=== PATIENT | female | born 1960 | race Hispanic/Latino ===

== ENCOUNTER 2018-01-15 17:58 | Observation (INO) | payer BC ==
[2018-01-15 18:45] LABS: #Basophils 0.1 thou/uL (0.0-0.2); #Eosinphils 0.1 thou/uL (0.0-0.7); #Lymphocytes 4.6 thou/uL (1.20-3.40); #Monocytes 1.3 thou/uL (0.11-0.59); #Neutrophils 6.7 thou/uL (1.40-6.50); %Basophils 0.6 % (0.0-1.0); %Eosinophils 0.9 % (0.0-10.0); %Lymphocytes 36.1 % (21.0-51.0); %Monocytes 9.9 % (0.0-10.0); %Neutrophils 52.5 % (42.0-75.0); Hemoglobin 13.9 g/dL (12.0-16.0); Mean Corpuscular HGB CONC 33.8 g/dL (32.0-36.0); Mean Corpuscular Hemoglobin 32.9 pg (27.0-31.0); Mean Corpuscular Volume 97.4 fl (81.0-99.0); Mean Platelet Volume 6.6 fL (7.4-10.4); Platelet Count 409 thou/uL (130-400); RBC Distribution Width 12.3 % (11.5-14.5); Red Blood Cell (RBC) Count 4.23 mill/uL (4.20-5.40); White Blood Cell (WBC) Count 12.7 thou/uL (4.8-10.8)
--- NOTE | 2018-01-15 18:53 | RAD ---
TWO VIEWS OF THE CHEST: 01/15/18 COMPARISON: 10/22/16 HISTORY: Chest tightness and hyperventilation. FINDINGS: Two views of the chest show normal sized cardiomediastinal silhouette. There is no evidence of consol idation, mass, or pleural effusion. Hardware seen in the right humerus. IMPRESSION: No evidence of acute cardiopulmonary disease. POS: [facility]
[2018-01-15 19:03] LABS: Anion Gap 18 mmol/L (10-20); BUN (Urea Nitrogen) 13 mg/dL (9.8-20.1); Calc. Creatinine Clearance 0 mL/min (70-130); Calcium 10.3 mg/dL (7.8-10.44); Carbon Dioxide 19 mmol/L (22-29); Chloride 109 mmol/L (98-107); Estimated GFR-MDRD 75; Glucose 102 mg/dL (70-105); Potassium 3.6 mmol/L (3.5-5.1); Sodium 142 mmol/L (136-145)
[2018-01-15 19:09] LABS: Troponin I Less than 0.010 ng/mL (< 0.028)
[2018-01-15] MEDS ORDERED: Lorazepam 2 MG/ML VIAL ONE (19:34)
[2018-01-15 20:10] LABS: Bilirubin Negative (Negative); Blood, Urine Negative (Negative); Clarity CLOUDY (Clear); Glucose, Urine (Dipstick) Negative (Negative); Leukocyte Trace (Negative); Nitrite Negative (Negative); Protein, Urine (Dipstick) Negative (Neg-Trace); Specific Gravity, Urine 1.009 (1.002-1.036)
[2018-01-15 20:13] LABS: Bacteria/HPF 1+ HPF (None Seen); Hyaline Casts/LPF 0-3 HYALINE CAST LPF (0-3 Hyaline); Pathc Cast-AUWi Flag 0.14 (0-2.49); RBC/HPF 0-3 HPF (0-3)
[2018-01-15] MEDS ORDERED: diphenhydrAMINE 50 MG/ML VIAL ONE (20:43)
[2018-01-15] MEDS ORDERED: Ketorolac Tromethamine 30 MG/ML VIAL ONE (20:43)
[2018-01-15] MEDS ORDERED: Ondansetron ODT 4 MG TAB ONE (20:43)
[2018-01-15] MEDS ORDERED: Dextrose 50% Abboject 50 ML SYRINGE SLOW IVP PRN (22:04)
[2018-01-15] MEDS ORDERED: Eucerin (Mineral Oil/Petrolatum,White) 30 gm Jar TOP PRN (22:04)
[2018-01-15] MEDS ORDERED: Loperamide HCl 2 MG CAP PO PRN (22:04)
[2018-01-15] MEDS ORDERED: Sodium Chloride 0.65% Nasal 44 ML BOT EA NARE PRN (22:04)
[2018-01-15] MEDS ORDERED: Nitroglycerin 0.4 MG TAB (25 Tab Bottle) SL PRN (22:04)
[2018-01-15] MEDS ORDERED: Dextrose 5% in Water 1,000 ML IV PRN (22:04)
[2018-01-15] MEDS ORDERED: Loratadine 10 MG TAB PO PRN (22:04)
[2018-01-15] MEDS ORDERED: Diabetic Tussin 200 MG/10 ML UDCUP PO PRN (22:04)
[2018-01-15] MEDS ORDERED: Mag-Al 1200 mg/1200 mg/30 ML UDCUP PO PRN (22:04)
[2018-01-15] MEDS ORDERED: Chloraseptic Spray 180 ml Bottle PO PRN (22:04)
[2018-01-15] MEDS ORDERED: Artificial Tears 18 DROP/0.9 ML EA EYE PRN (22:04)
[2018-01-15] MEDS ORDERED: Ondansetron HCl/PF 4 MG/2 ML Vial IVP PRN (22:04)
[2018-01-15] MEDS ORDERED: Senokot 8.6 MG TAB PO PRN (22:04)
[2018-01-15] MEDS ORDERED: Milk Of Magnesia 30 ML UDCUP PO PRN (22:04)
[2018-01-15] MEDS ORDERED: Zolpidem Tartrate 5 MG TAB PO PRN (22:04)
[2018-01-15] MEDS ORDERED: HumaLOG 300 UNITS/3 ML VIAL SC PRN ×2 (22:04)
[2018-01-15] MEDS ORDERED: HYDROcodone/Acetaminophen 5/325 mg Tablet PO PRN (22:04)
[2018-01-15] MEDS ORDERED: hydrALAZINE 20 MG/ML VIAL SLOW IVP PRN (22:04)
[2018-01-15] MEDS ORDERED: Guaifenesin DM 100-10/5 ML UDCUP PO PRN (22:04)
[2018-01-15 22:07] LABS: Troponin I Less than 0.010 ng/mL (< 0.028)
[2018-01-15] MEDS: Acetaminophen 325 MG TAB PO PRN (22:40)
[2018-01-15 22:51] VITALS: BMI 31.2
--- NOTE | 2018-01-15 23:04 | HP ---
PRIMARY CARE PHYSICIAN: Dr. Louisa Boyle. REASON FOR ADMISSION: Chest pain. HISTORY OF PRESENT ILLNESS: A 57-year-old female who has underlying history of diabetes type 2, hypo thyroidism, dyslipidemia, gastroesophageal reflux disease, anxiety, and depression, who came to emerg ency room with complaint of intermittent chest pain. Patient feels that she was feeling anxiety and panic attack. She is in lot of stress lately. She is taking care of her mother who is very sick. S he was also having a lot of other stress in her family and that is why she was attributing all sympto ms to her anxiety attack. Patient was feeling shakiness. At the same time, she was experiencing sub sternal chest tightness, nausea, and headache. She was feeling palpitation and shortness of breath. She was feeling tingling, numbness sensation in arm, and around her lip. Patient was also feeling d izziness and lightheadedness. Patient was having these symptoms since Wednesday, but Wednesday, her symptoms was gotten worse. She res elsa very well Wednesday afternoon, but when she woke up at that time she was feeling nausea and chest tightness and that is why they were worried about heart problem and decided to come to emergency room for evaluation. Patient never had any heart-related testing in emergency room, she was hemodynamica lly stable, so initially tachycardic, tachypneic, and anxious, but after emergency room treatment, clarissa win was more stabilized. Patient's urinalysis was suggestive of UTI, but she did not have any UTI symptoms. She did not have any fever or chills. Today in the emergency room examination showed sign ificant murmur and that is why we decided to keep this patient in hospital for further evaluation and treatment. She denies any UTI symptoms. She denies any constipation, diarrhea, melena, hematochezia. She denie s any abdominal pain. She denies any fever or chills. She denies any headache, focal motor weakness or sensory symptoms. REVIEW OF SYSTEMS: Please see my HPI for pertinent positive and negative. All other review of syste ms reviewed and negative except as mentioned in the HPI: Constitutional: Weight loss or gain, abili ty to conduct usual activities. Skin: Rash, itching. Eyes: Double vision, pain. ENT/Mouth: Nose bleeding, neck stiffness, pain, tenderness. Cardiovascular: Palpitations, dyspnea on exertion, ort hopnea. Respiratory: Shortness of breath, wheezing, cough, hemoptysis, fever, or night sweats. Gas trointestinal: Poor appetite, abdominal pain, heartburn, nausea, vomiting, constipation, or diarrhea . Genitourinary: Urgency, frequency, dysuria, nocturia. Musculoskeletal: Pain, swelling. Neurolo gic/Psychiatric: Anxiety, depression. Allergy/Immunologic: Skin rash, bleeding tendency. ALLERGIES: TETRACYCLINE. CURRENT HOME MEDICATIONS: Bupropion XL 150 mg p.o. daily, metformin extended release 1000 mg p.o. da jeff, levothyroxine 125 mcg p.o. daily, Lipitor 40 mg p.o. at bedtime, Celexa 10 mg p.o. daily, omepra zole 40 mg p.o. daily, Benadryl 25 mg as needed. PAST MEDICAL HISTORY: Diabetes type 2, hypothyroidism, dyslipidemia, gastroesophageal reflux disease , history of Hodgkin's lymphoma treated with radiation in 1989. Patient is under remission for last 15 years. PAST PSYCHIATRIC HISTORY: Anxiety and depression. PAST SURGICAL HISTORY: Right shoulder surgery. SOCIAL HISTORY: Patient is . She drinks alcohol socially. She smokes occasionally. She den ies any other illicit drug abuse. She lives at home with family. FAMILY HISTORY: No strong family history of premature coronary artery disease, stroke, or cancer. EMERGENCY ROOM COURSE: Patient is given Rocephin 1 gram, Benadryl 25 mg, Toradol 15 mg, Reglan 10 mg , Ativan 1 mg, and aspirin 325 mg. PHYSICAL EXAMINATION: VITAL SIGNS: On arrival, blood pressure 136/104, pulse 113, respiratory rate 30, temperature 98.0, s aturation 98% on room air, weight 82.5 kilograms. GENERAL: Patient is currently alert, awake, anxious. HEAD: Normocephalic, atraumatic. EYES: Pupils round, reactive to light. Extraocular muscle intact. ENT: Oropharynx within normal limits. Moist mucous membranes. No oral lesion, no pharyngeal erythe ma, no exudate. NECK: Supple, no JVD, no thyromegaly, no carotid bruit, no jugular venous distention. LUNGS: Clear to auscultation without any rhonchi or rales. CARDIAC: S1, S2 regular. Systolic murmur present at the aortic area radiating to apex grade 3/6. N o gallop, no rub. ABDOMEN: Soft, bowel sounds present, nontender, nondistended. No organomegaly, no mass, no suprapub ic tenderness. BACK: Unremarkable, no CVA tenderness. EXTREMITIES: Upper extremities, passive movement of all joints are normal. Lower extremities: No e kimberly. Good peripheral pulsation. SKIN: No skin rash. HEMATOLOGICAL SYSTEM: No lymphadenopathy. PSYCHIATRIC: Normal affect. NEUROLOGIC: Nonfocal examination. SIGNIFICANT LABORATORY DATA: EKG showing sinus tachycardia, nonspecific ST-T changes. Chest x-ray b ased on my review, no acute cardiopulmonary process. CBC: WBC 12.7, hemoglobin 13.9, platelet 409. BMP: Sodium 142, potassium 3.6, chloride 109, carbon dioxide 19, BUN 13, creatinine 0.79, glucose 102, calcium 10.3, troponin I less than 0.010. D-dimer less than 0.27. Urinalysis suggestive of urinary tract infections. ASSESSMENT AND PLAN: 1. Chest pain. Patient's chest pain description is atypical most likely related with anxiety neuros is given her significant murmur in aortic area, we are suspecting aortic valve disease as well. Curr ently, EKG is not showing any ischemic changes and her troponins are negative. Her D-dimer is also n egative and her history does not support any thromboembolic disorder, most likely current presentatio n is consistent with anxiety neurosis, but she has several risk factors for coronary artery disease a nd that is why she will need to rule out acute coronary syndrome. We will do serial cardiac enzymes x3 and if negative, then tomorrow morning, we will perform exercise Cardiolite stress test for diagno stic reasons. We will check lipid profile for risk stratification, meanwhile, continue with aspirin 325 mg p.o. daily and nitro patch q.8 hourly. 2. Murmur. Patient does have aortic valve murmur. I am suspecting aortic stenosis with mitral regu rgitation. Patient also has murmur radiating to mitral valve area. This patient will need echocardi ography for further evaluation. Based on echo finding, we will decide next step. 3. Diabetes type 2, continue insulin as per sliding scale protocol. Diabetic diet will be given. C ontinue metformin 500 mg p.o. twice daily. 4. Hypothyroidism, continue Synthroid 125 mcg p.o. daily. 5. Gastroesophageal reflux disease, continue Pepcid 20 mg p.o. b.i.d. 6. Dyslipidemia, check lipid profile tomorrow and continue Lipitor 40 mg p.o. at bedtime. 7. Anxiety and depression, continue Wellbutrin-SR 150 mg p.o. daily and Celexa 10 mg p.o. daily. 8. Asymptomatic urinary tract infection. Patient is already given Rocephin, we will give her Cipro 500 mg p.o. twice daily. 9. Deep venous thrombosis prophylaxis not needed, because we are expecting discharge in 24 hours. 10. Code status: Patient is FULL CODE. Patient's is surrogate decision maker. Disposition plan based on clinical course. Plan of care discussed with the patient's in [facility].
[2018-01-15] MEDS: Nitroglycerin 2% Ointment 1 INCH/1 GM Packet TOP SCH (23:25)
[2018-01-16 01:12] LABS: Troponin I Less than 0.010 ng/mL (< 0.028)
[2018-01-16] MEDS: Ondansetron ODT 4 MG TAB PO PRN ×2 (04:12→13:02)
[2018-01-16] MEDS: Acetaminophen 325 MG TAB PO PRN (04:12)
[2018-01-16 05:13] LABS: Cardiac Risk 3.8 (Less than 4.5)
[2018-01-16] MEDS ORDERED: Levothyroxine Sodium 125 MCG TAB PO SCH (06:00)
[2018-01-16] MEDS ORDERED: metFORMIN 500 MG TAB PO SCH (08:00)
[2018-01-16] MEDS ORDERED: Aspirin 325 MG TAB PO SCH (09:00)
[2018-01-16] MEDS ORDERED: Citalopram 10 MG TAB PO SCH (09:00)
[2018-01-16] MEDS ORDERED: Bupropion 150 MG XL TAB PO SCH (09:00)
[2018-01-16] MEDS ORDERED: Famotidine 20 MG TAB PO SCH (09:00)
[2018-01-16] MEDS ORDERED: ALPRAZolam 0.25 MG TAB PO PRN (10:23)
--- NOTE | 2018-01-16 10:30 | PDOC.EVN ---
Event Note - Event Note Event Note: dc summary dictated #[id number]
--- NOTE | 2018-01-16 10:44 | DIS ---
DATE OF ADMISSION: 01/15/2018 DATE OF DISCHARGE: 01/16/2018 ADMITTING DIAGNOSES: Chest pain as well as history of anxiety, history of hypertension, history of hyperthyroidism and DM II. DISCHARGE DIAGNOSES: 1. Chest pain, likely related to anxiety and valvulopathy. 2. History of hypertension, stable. 3. History of hypothyroidism, stable. 4. History of diabetes mellitus type 2, stable. HOSPITAL COURSE: This is a 57-year-old female who was admitted to the hospital for severe anxiety and chest pain. Patient had a history of valvulopathy as well as risk factors for cardiac disease given her hypertension and diabetes mellitus type 2. The patient was admitted to Internal Medicine team and was followed on telemetry floor observation status with cardiac enzymes being done and coronary artery disease ruled out. Patient had an echo done as well as a nuclear stress test. The patient was found to have atypical noncardiac chest pain in nature, likely secondary to severe anxiety. The patient recently apparently had stopped her Xanax cold and started taking citalopram 5 days ago. The patient was advised to resume her Xanax for at least 5-7 more days and then discontinuing it as drug levels would probably not be therapeutic for her citalopram. Patient's condition at point in time of discharge was stable. DISPOSITION: Home. FOLLOWUP: Follow up with primary care physician in 1-2 weeks. MEDICATIONS: Resume home medications with Xanax to be resumed low dose for about 5-7 days and then discontinuation of Xanax once citalopram has been taken for more than 2 weeks. DIET: Low fat, low calorie, high fiber. CONDITION: Stable. PROGNOSIS: Good. ACTIVITY: As tolerated. Case and plan discussed with the patient and at length. They understand and agree with this plan. JAVIER
[2018-01-16] MEDS ORDERED: ADENOSINE 60 MG/20 ML VIAL ONE (12:06)
[2018-01-16] MEDS: Nitroglycerin 2% Ointment 1 INCH/1 GM Packet TOP SCH (14:11)
[2018-01-16 15:55] VITALS: BP 147/82; TEMP 98.1
--- NOTE | 2018-01-16 16:29 | NM ---
MYOCARDIAL PERFUSION AND QUANTATIVE GATED SPECT STUDY: History: Chest pain. History of diabetes. Dose: 28 mCi Technetium 99M Cardiolite for the stress portion of the exam and 10 mCi Technetium 99M C ardiolite for the resting portion of the exam. The patient was stress using 45.9 mg Adenosine given I V. FINDINGS: Myocardial perfusion and quantitative ferris SPECT images obtained. No evidence of myocardial ischemia or scar seen. No evidence of wall motion abnormality seen. Ejection fraction measures 80%. IMPRESSION: Normal myocardial perfusion and quantitative gated SPECT study. POS: [facility]
[2018-01-16] MEDS ORDERED: Atorvastatin Calcium 40 MG TAB PO SCH (21:00)
== END 2018-01-16 16:04 | disposition home or self-care (01) ==
LOC: ERS 17:58 → 2SW 20:35
PROVIDERS: ADMIT Internal Medicine Infectious Disease; ATTEND Internal Medicine Infectious Disease
DX: R07.89 Other chest pain (principal); I10 Essential (primary) hypertension; E03.9 Hypothyroidism, unspecified; E11.9 Type 2 diabetes mellitus without complications; F42.9 Obsessive-compulsive disorder, unspecified; E78.5 Hyperlipidemia, unspecified; K21.9 Gastro-esophageal reflux disease without esophagitis; F17.200 Nicotine dependence, unspecified, uncomplicated; I35.8 Other nonrheumatic aortic valve disorders; N39.0 Urinary tract infection, site not specified; F32.9 Major depressive disorder, single episode, unspecified; Z79.84 Long term (current) use of oral hypoglycemic drugs; Z79.899 Other long term (current) drug therapy; Z88.1 Allergy status to other antibiotic agents; Z98.890 Other specified postprocedural states; Z85.71 Personal history of Hodgkin lymphoma; Z92.3 Personal history of irradiation
CPT/HCPCS: 36415; 36416; 71046; 78452; 80048; 80061; 81003; 81015; 84484; 85025; 85379; 93005; 93017; 93306; 96374; 96375; 99406; A9500; G0378; J0153; J0696; J1200; J1885; J2060; Q0162

== ENCOUNTER 2019-06-20 14:54 | Outpatient (CLI) | payer BC ==
[2019-06-20 15:59] LABS: #Basophils 0.1 thou/uL (0.0-0.2); #Eosinphils 0.1 thou/uL (0.0-0.7); #Lymphocytes 3.1 thou/uL (1.20-3.40); #Monocytes 0.9 thou/uL (0.11-0.59); #Neutrophils 5.7 thou/uL (1.40-6.50); %Basophils 0.9 % (0.0-1.0); %Eosinophils 0.9 % (0.0-10.0); %Lymphocytes 31.6 % (21.0-51.0); %Monocytes 9.5 % (0.0-10.0); %Neutrophils 57.1 % (42.0-75.0); Hemoglobin 13.4 g/dL (12.0-16.0); Mean Corpuscular HGB CONC 32.8 g/dL (32.0-36.0); Mean Corpuscular Hemoglobin 32.8 pg (27.0-31.0); Mean Platelet Volume 7.6 fL (7.4-10.4); Platelet Count 342 thou/uL (130-400); Red Blood Cell (RBC) Count 4.09 mill/uL (4.20-5.40); White Blood Cell (WBC) Count 9.9 thou/uL (4.8-10.8)
[2019-06-20 16:18] LABS: Anion Gap 12 mmol/L (10-20); BUN (Urea Nitrogen) 16 mg/dL (9.8-20.1); Calc. Creatinine Clearance 0 mL/min (70-130); Calcium 9.5 mg/dL (7.8-10.44); Carbon Dioxide 27 mmol/L (22-29); Chloride 105 mmol/L (98-107); Estimated GFR-MDRD 76; Glucose 135 mg/dL (70-105); Potassium 3.9 mmol/L (3.5-5.1); Sodium 140 mmol/L (136-145)
--- NOTE | 2019-06-21 16:54 | EKG ---
Test Reason : Blood Pressure : / mmHG Vent. Rate : 099 BPM Atrial Rate : 099 BPM P-R Int : 130 ms QRS Dur : 080 ms QT Int : 372 ms P-R-T Axes : 044 011 084 degrees QTc Int : 477 ms Normal sinus rhythm Anterior infarct (cited on or before 15-JAN-2018) Abnormal ECG When compared with ECG of 15-JAN-2018 18:06, Questionable change in initial forces of Septal leads Nonspecific T wave abnormality has replaced inverted T waves in Lateral leads Confirmed by DR. Terese ESPOSITO ([id number]) on 06/21/2019 4:54:15 PM Referred By: SUNITHA Confirmed By:DR. Terese ESPOSITO
== END 2019-06-20 14:55 | disposition home or self-care (01) ==
LOC: LABBT 14:54
PROVIDERS: ATTEND Surgery
DX: Z01.818 Encounter for other preprocedural examination (principal); K43.2 Incisional hernia without obstruction or gangrene
CPT/HCPCS: 80048; 85025; 93005; 93010

== ENCOUNTER 2019-06-23 10:05 | Day surgery (SDC) | payer BC ==
[2019-06-20 15:25] VITALS: BMI 29.4
[2019-06-23] MEDS ORDERED: Bupivacaine/Epinephrine 0.25% 30 ML VIAL ONE (11:00)
[2019-06-23] MEDS ORDERED: Midazolam HCl 2 mg/2 ml Vial ONE (11:17)
[2019-06-23] MEDS ORDERED: Fentanyl 100 MCG/2 ML VIAL ONE ×3 (11:17→13:56)
[2019-06-23] MEDS ORDERED: HYDROcodone/Acetaminophen 10/325 mg Tablet ONE (13:42)
[2019-06-23] MEDS ORDERED: Ketorolac Tromethamine 30 MG/ML VIAL ONE (13:44)
[2019-06-23] MEDS ORDERED: PROPOFOL 200 MG/20 ML VIAL ONE (13:44)
[2019-06-23] MEDS ORDERED: Dexamethasone 20 MG/5 ML VIAL ONE (13:44)
[2019-06-23] MEDS ORDERED: Ondansetron PF 4 MG/2 ML Vial ONE (13:44)
[2019-06-23] MEDS ORDERED: Glycopyrrolate 0.2 MG/ML 5 ML SYRINGE ONE (13:44)
[2019-06-23] MEDS ORDERED: PHENYLEPHRINE-NS 100 MCG/ML 10 ML SYRINGE ONE (13:44)
[2019-06-23] MEDS ORDERED: Lidocaine 1% PF 5 ML VIAL ONE (13:44)
[2019-06-23] MEDS ORDERED: Rocuronium Bromide 10 MG/ML (10ML VIAL) ONE (13:44)
--- NOTE | 2019-06-23 14:30 | OP ---
DATE OF PROCEDURE: 06/23/2019 PREOPERATIVE DIAGNOSIS: Incisional hernia. POSTOPERATIVE DIAGNOSIS: Incisional hernia. PROCEDURE PERFORMED: Laparoscopic Da Delma incisional hernia repair with mesh, [address] ANESTHESIA: General. ESTIMATED BLOOD LOSS: None. COMPLICATIONS: None. SPECIMEN: None. FINDINGS: Old mesh was removed. DESCRIPTION OF PROCEDURE: The patient was taken to the operating room and laid supine on the operating room table. After general anesthetic was obtained, a Potter was placed. The abdomen was shaved, prepped, and draped in a sterile fashion. Left subcostal 5 mm Optiview trocar was placed in the usual fashion without injury and high-flow pneumoperitoneum was obtained. Left and right abdominal 8 mm robotic trocars were placed. The subcostal 5 mm port was switched out to an 11 mm balloon trocar. All ports were docked to the robot. Surgeon gone to the console. The peritoneal fat and peritoneum were taken down in the area of the umbilicus, where the recurrent hernia was. The old mesh was taken down with the peritoneum, it was removed from the abdomen through the camera port. The fascial defect was found. The preperitoneal fat was dissected out of the 2 cm defect. There were two defects, one small, one large. They were closed using a running 0 V-Loc suture. The 8 cm mesh was placed posterior to the repair with the exposed mesh against the posterior fascia. The mesh was sewn via 2-0 V-Loc around the edges just to hold it to the posterior fascia. All needles were removed from the abdomen and accounted for. All port sites were infiltrated under local anesthetic. All ports were removed under camera visualization. Pneumoperitoneum was let down. 4-0 Monocryl and Dermabond were used to close all skin incisions. The patient was sent to Recovery in stable condition. All instrument counts, needle counts, and lap counts were correct. Job ID: [id number]
[2019-06-23] MEDS ORDERED: Promethazine HCl 25 MG/ML VIAL ONE (14:54)
[2019-06-23] MEDS ORDERED: Ondansetron ODT 4 MG TAB ONE (16:54)
== END 2019-06-23 17:05 | disposition home or self-care (01) ==
LOC: SDC 10:05
PROVIDERS: ATTEND Surgery
PROC: 0WUF4JZ Supplement Abdominal Wall with Synthetic Substitute, Percutaneous Endoscopic Approach (ICD-10-PCS; principal; 2019-06-23)
DX: K43.2 Incisional hernia without obstruction or gangrene (principal); E03.9 Hypothyroidism, unspecified; F17.200 Nicotine dependence, unspecified, uncomplicated; Z85.71 Personal history of Hodgkin lymphoma; Z86.010 Personal history of colon polyps; Z79.899 Other long term (current) drug therapy; Z88.1 Allergy status to other antibiotic agents; Z88.8 Allergy status to other drugs, medicaments and biological substances
CPT/HCPCS: C1781; J0690; J2250; J2550; J3010; Q0162

== ENCOUNTER 2020-03-13 16:00 | Outpatient (CLI) | payer BC ==
--- NOTE | 2020-03-13 16:23 | MMO ---
Bilateral MAMMO Bilat Screen [facility]. CLINICAL HISTORY: Patient is 59 years old and is seen for screening. The patient has no family history of breast cancer. The patient has a history of lymphoma at age 35. VIEWS: The views performed were: bilateral craniocaudal with tomosynthesis and bilateral mediolateral oblique with tomosynthesis. FILMS COMPARED: The present examination has been compared to prior imaging studies performed at [facility] on 01/06/2011 and 06/24/2017, and at [facility] on 06/25/2004. This study has been interpreted with the assistance of computer-aided detection. MAMMOGRAM FINDINGS: There are scattered fibroglandular densities. There are no suspicious masses, suspicious calcifications, or new areas of architectural distortion. IMPRESSION: THERE IS NO MAMMOGRAPHIC EVIDENCE OF MALIGNANCY. A ROUTINE FOLLOW-UP MAMMOGRAM IN 1 YEAR IS RECOMMENDED. THE RESULTS OF THIS EXAM WERE SENT TO THE PATIENT. ACR BI-RADS Category 1 - Negative MAMMOGRAPHY NOTE: 1. A negative mammogram report should not delay a biopsy if a dominant of clinically suspicious mass is present. 2. Approximately 10% to 15% of breast cancers are not detected by mammography. 3. Adenosis and dense breasts may obscure an underlying neoplasm. Reported by: KE HODGE MD Electonically Signed: [id number]
== END 2020-03-13 16:01 | disposition home or self-care (01) ==
LOC: BICMAMMO 16:00
PROVIDERS: ATTEND Family Medicine
DX: Z12.31 Encounter for screening mammogram for malignant neoplasm of breast (principal); Z85.72 Personal history of non-Hodgkin lymphomas
CPT/HCPCS: 77063; 77067

== ENCOUNTER 2022-05-14 13:12 | Outpatient (CLI) | payer BC | END 2022-05-14 13:13 | disposition home or self-care (01) | LOC: BICMAMMO 13:12 | PROVIDERS: ATTEND Family Medicine | DX: Z12.31 Encounter for screening mammogram for malignant neoplasm of breast (principal) | CPT/HCPCS: 77063; 77067 ==

== ENCOUNTER 2022-12-30 10:08 | Outpatient (CLI) | payer BC | END 2022-12-30 10:09 | disposition home or self-care (01) | LOC: BICRAD 10:08 | PROVIDERS: ATTEND Family Medicine | DX: R05.1 Acute cough (principal) | CPT/HCPCS: 71046 ==

== ENCOUNTER 2023-03-16 15:16 | Outpatient (CLI) | payer BC | END 2023-03-16 15:17 | disposition home or self-care (01) | LOC: BICRAD 15:16 | PROVIDERS: ATTEND Family Medicine | DX: R05.3 Chronic cough (principal) | CPT/HCPCS: 71046 ==

== ENCOUNTER 2023-05-12 10:26 | Day surgery (SDC) | payer BC ==
[2023-05-11 11:43] VITALS: BMI 29.7
[2023-05-12] MEDS ORDERED: Oxymetazoline HCl 0.05% (30 ML BOT) ONE (11:27)
[2023-05-12 11:32] LABS: Hematocrit 41.1 % (36.0-47.0)
[2023-05-12] MEDS ORDERED: Lidocaine 1% (PF) 30 ML VIAL ONE (12:58)
[2023-05-12] MEDS ORDERED: fentaNYL 50 mcg/mL 1 mL Vial ONE ×7 (12:59→15:15)
[2023-05-12] MEDS ORDERED: Famotidine/PF 20 mg/2ml Vial ONE (13:00)
[2023-05-12] MEDS ORDERED: Phenylephrine 10 MG/ML VIAL ONE (13:00)
[2023-05-12] MEDS ORDERED: Ondansetron PF 4 MG/2 ML Vial ONE (13:14)
[2023-05-12] MEDS ORDERED: NEOSTIGMINE 3 MG/3 ML SYR 3 MG/3 ML SYRINGE ONE (13:14)
[2023-05-12] MEDS ORDERED: Dexamethasone 20 MG/5 ML VIAL ONE (13:14)
[2023-05-12] MEDS ORDERED: Lidocaine 1% PF 5 ML VIAL ONE (13:14)
[2023-05-12] MEDS ORDERED: Rocuronium Bromide 10 MG/ML (10ML VIAL) ONE (13:14)
[2023-05-12] MEDS ORDERED: Succinylcholine 200 MG/10 ml SYRINGE FS ONE (13:14)
[2023-05-12] MEDS ORDERED: Glycopyrrolate 0.2 MG/ML 5 ML SYRINGE ONE (13:14)
[2023-05-12] MEDS ORDERED: HYDROcodone/Acetaminophen 5/325 mg Tablet ONE (16:01)
== END 2023-05-12 16:41 | disposition home or self-care (01) ==
LOC: SDC 10:26
PROVIDERS: ATTEND Otolaryngology Plastic Surgery within the Head & Neck
PROC: 099S8ZZ Drainage of Right Frontal Sinus, Via Natural or Artificial Opening Endoscopic (ICD-10-PCS; principal; 2023-05-12)
PROC: 099T8ZZ Drainage of Left Frontal Sinus, Via Natural or Artificial Opening Endoscopic (ICD-10-PCS; principal; 2023-05-12)
PROC: 099X8ZZ Drainage of Left Sphenoid Sinus, Via Natural or Artificial Opening Endoscopic (ICD-10-PCS; principal; 2023-05-12)
PROC: 099R8ZZ Drainage of Left Maxillary Sinus, Via Natural or Artificial Opening Endoscopic (ICD-10-PCS; principal; 2023-05-12)
PROC: 099V8ZZ Drainage of Left Ethmoid Sinus, Via Natural or Artificial Opening Endoscopic (ICD-10-PCS; principal; 2023-05-12)
PROC: 099Q8ZZ Drainage of Right Maxillary Sinus, Via Natural or Artificial Opening Endoscopic (ICD-10-PCS; principal; 2023-05-12)
PROC: 09TL8ZZ Resection of Nasal Turbinate, Via Natural or Artificial Opening Endoscopic (ICD-10-PCS; principal; 2023-05-12)
PROC: 099U8ZZ Drainage of Right Ethmoid Sinus, Via Natural or Artificial Opening Endoscopic (ICD-10-PCS; principal; 2023-05-12)
PROC: 099W8ZZ Drainage of Right Sphenoid Sinus, Via Natural or Artificial Opening Endoscopic (ICD-10-PCS; principal; 2023-05-12)
DX: J34.3 Hypertrophy of nasal turbinates (principal); J32.0 Chronic maxillary sinusitis; J32.1 Chronic frontal sinusitis; J32.2 Chronic ethmoidal sinusitis; J32.3 Chronic sphenoidal sinusitis; J30.89 Other allergic rhinitis; J30.1 Allergic rhinitis due to pollen; J30.81 Allergic rhinitis due to animal (cat) (dog) hair and dander; I10 Essential (primary) hypertension; E78.00 Pure hypercholesterolemia, unspecified; F41.9 Anxiety disorder, unspecified; F32.A Depression, unspecified; R73.03 Prediabetes; Z87.891 Personal history of nicotine dependence; Z79.899 Other long term (current) drug therapy; Z90.710 Acquired absence of both cervix and uterus
CPT/HCPCS: 85014; 93005; 93010; J1100; J2001; J2370; J2405; J3010; S0028

== ENCOUNTER 2023-05-19 08:24 | Outpatient (CLI) | payer BC | END 2023-05-19 08:25 | disposition home or self-care (01) | LOC: RAD 08:24 | PROVIDERS: ATTEND Internal Medicine Critical Care Medicine | DX: R06.00 Dyspnea, unspecified (principal); J98.4 Other disorders of lung; R91.8 Other nonspecific abnormal finding of lung field | CPT/HCPCS: 71046 ==

== ENCOUNTER 2024-03-16 11:38 | Outpatient (CLI) | payer BC | END 2024-03-16 11:39 | disposition home or self-care (01) | LOC: RAD 11:38 | PROVIDERS: ATTEND Physician Assistant | DX: R06.02 Shortness of breath (principal); S22.089A Unspecified fracture of T11-T12 vertebra, initial encounter for closed fracture | CPT/HCPCS: 71046 ==

== ENCOUNTER 2025-05-18 08:35 | Outpatient (CLI) | payer BC | END 2025-05-18 08:36 | disposition home or self-care (01) | LOC: SCSMRI 08:35 | PROVIDERS: ATTEND Internal Medicine Hematology & Oncology | DX: C81.12 Nodular sclerosis Hodgkin lymphoma, intrathoracic lymph nodes (principal); C15.4 Malignant neoplasm of middle third of esophagus | CPT/HCPCS: 74183 ==